=== PATIENT | male | born 1945 | race American Indian/Alaskan Native ===

== ENCOUNTER 2017-06-22 13:02 | Emergency (ER) | payer OTHER, MEDICARE ==
[2017-06-22 13:14] VITALS: BP 150/88; PULSE 90; RESP 18; TEMP 98.7; O2SAT 98; BMI 25.7
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
== END 2017-06-22 14:04 | disposition home or self-care (01) ==
LOC: ED 13:02
DX: Z04.1 Encounter for examination and observation following transport accident (principal); V49.49XA Driver injured in collision with other motor vehicles in traffic accident, initial encounter; Y92.410 Unspecified street and highway as the place of occurrence of the external cause
CPT/HCPCS: 99284; G0480